=== PATIENT | male | born 1940 | race African-American/Black ===

== ENCOUNTER 2017-01-10 14:12 | Emergency (ER) | payer OTHER ==
[~2017-01-10] VITALS: Ht 170.2 cm; Wt 81.1 kg
[2017-01-10 15:40] LABS: EOSINOPHIL (%) 0 % (0-5); HEMATOCRIT 37.3 % (38.0-50.0); IMMATURE GRANULOCYTE (%) 0.4 % (0.0-0.7); INSTRUMENT ABS NEUTROPHIL CT 6.7 K/uL; LYMPHOCYTE COUNT 0.8 K/uL (1.0-2.8); MCHC 33.8 G/DL (30.0-36.0); MCV 91.6 FL (86-99); MEAN PLAT.VOLUME 10.9 uM^3 (9.0-12.4); MONOCYTE (%) 11.1 % (3-12); MONOCYTE COUNT 0.9 K/uL (0-0.8); NEUTROPHIL (%) 79.1 % (45-76); NEUTROPHIL COUNT 6.7 K/uL (1.8-6.4); PLATELET COUNT 196 K/uL (156-360); RBC DIS.WIDTH-CV 14.4 % (11.8-14.6); RBC DIS.WIDTH-SD 48.3 % (39-53); RED BLOOD COUNT 4.07 M/uL (4.00-5.50); WHITE BLOOD COUNT 8.5 K/uL (4.1-10.2)
[2017-01-10 15:52] LABS: CHLORIDE 108 mEq/L (99-109); POTASSIUM 3.7 mEq/L (3.7-5.4); SODIUM 141 mEq/L (136-147)
[2017-01-10 15:53] LABS: GLUCOSE 99 mg/dL (70-99)
[2017-01-10 15:55] LABS: ANION GAP 7 MEQ/L (2-14)
[2017-01-10 15:58] LABS: GFR ESTIMATE (CALCULATED) > 59 mL/min/; UREA NITROGEN (BUN) 11 mg/dL (9-23)
[2017-01-10 18:22] LABS: ADD MIUA? NO; BILIRUBIN NEGATIVE; BLOOD NEGATIVE; COLOR YELLOW ((YELLOW)); GLUCOSE (STRIP) NEGATIVE; KETONES NEGATIVE; LEUKOCYTES NEGATIVE; NITRITE NEGATIVE; PROTEIN (STRIP) 30; SPECIFIC GRAVITY 1.014 (1.000-1.030)
[2017-01-10] MEDS ORDERED: ASPIRIN81 M2 PO (20:04)
[2017-01-10] MEDS ORDERED: AMLODIPINE BESYL5 MG PO (20:04)
[2017-01-10] MEDS ORDERED: DILTIAZEM 24HR240 MG PO (20:05)
[2017-01-10] MEDS ORDERED: OXYCODONE HCL20 M1 PO (20:05)
[2017-01-10] MEDS ORDERED: ZOFRAN4 MG PO (20:20)
[2017-01-10 21:12] VITALS: BP 145/84
== END 2017-01-10 21:13 | disposition home or self-care (01) ==
LOC: EME 14:12
PROVIDERS: Nurse Practitioner Family
DX: R11.2 Nausea with vomiting, unspecified (principal); M54.41 Lumbago with sciatica, right side; C61 Malignant neoplasm of prostate; C79.51 Secondary malignant neoplasm of bone; Z79.899 Other long term (current) drug therapy; K59.00 Constipation, unspecified; I10 Essential (primary) hypertension; K21.9 Gastro-esophageal reflux disease without esophagitis; Z87.891 Personal history of nicotine dependence
CPT/HCPCS: 74020; 80048; 81003; 85025; 99281; 99284; J3010